=== PATIENT | female | born 1950 | race Caucasian/White ===

== ENCOUNTER 2018-05-19 10:17 | Emergency (ER) | payer MEDICARE, OTHER ==
--- NOTE | 2018-05-19 10:37 | ED ---
HPI Chest Pain - HPI Summary HPI Summary: Patient is a 67-year-old female who presents emergency department after an episode of chest pain and palpitations that occurred around 0300 today. She states she woke up from sleep and had substernal chest discomfort as well with a feeling of palpitations. No associated sxs of SOB, diaphoresis, lightedness/ dizziness. Episode passed quickly and pt. fell back asleep. Pt. 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 She states she wore a Holter monitor without significant findings. She believes she has had other tests on her heart such as stress test. Patient has a past medical history of hypertension and smoking. Takes baby asa daily. She denies strong family history for coronary artery disease. Patient does note that she did fly to the area from [place] on Sunday. Patient notes that she has had mild increased swelling in bilateral lower legs. Denies any significant shortness of breath. Symptoms are moderate in severity. Patient is currently chest pain-free. No current modifying factors. Pt. otherwise denies recent illness, cough, fever, abdominal pain, vomiting, diarrhea, urinary symptoms. - History of Current Complaint Chief Complaint: EDChestPainROMI Time Seen by Provider: 05/19/18 10:34 Hx Obtained From: Patient Pain Intensity: 0 - Allergy/Home Medications Allergies/Adverse Reactions: Allergies Allergy/AdvReac Type Severity Reaction Status Date / Time procaine [From Novocain] Allergy Numbness Verified 05/19/18 10:31 Home Medications: Home Medications Hydrochlorothiazide TAB* [Hydrodiuril TAB*] 25 mg PO DAILY 05/19/18 [History Confirmed 05/19/18] NIFEdipine ER TAB* [Procardia Xl TAB*] 30 mg PO DAILY 05/19/18 [History Confirmed 05/19/18] PMH/Surg Hx/FS Hx/Imm Hx Previously Healthy: Yes Infectious Disease History: No Infectious Disease History: Denies: Traveled Outside the [place] in Last 30 Days - Family History Known Family History: Negative: Cardiac Disease - Social History Occupation: Retired Lives: With Family Review of Systems Constitutional: Negative Negative: Fever, Chills Positive: Palpitations, Chest Pain Respiratory: Negative Gastrointestinal: Negative Negative: Abdominal Pain, Vomiting, Diarrhea, Nausea Genitourinary: Negative Neurological: Negative All Other Systems Reviewed And Are Negative: Yes Physical Exam Triage Information Reviewed: Yes Vital Signs On Initial Exam: Initial Vitals Temp Pulse Resp BP Pulse Ox 96.6 F 58 16 122/69 98 05/19/18 10:29 05/19/18 10:29 05/19/18 10:29 05/19/18 10:29 05/19/18 10:29 Vital Signs Reviewed: Yes Appearance: Positive: Well-Appearing - Pt. sitting on bed in no acute distress. Skin: Positive: Warm, Dry Head/Face: Positive: Normal Head/Face Inspection Eyes: Positive: Normal, EOMI Respiratory/Lung Sounds: Positive: Clear to Auscultation, Breath Sounds Present Cardiovascular: Positive: Normal, RRR Abdomen Description: Positive: Nontender, Soft Musculoskeletal: Positive: Normal, Strength/ROM Intact, Other - Mild bilateral lower leg edema. No calf tenderness or palpable cords. Diffuse ecchymosis to the fourth right toe with minimal pain. No pain to the foot or ankle. Diagnostics - Vital Signs Vital Signs Temp Pulse Resp BP Pulse Ox 05/19/18 10:29 96.6 F 58 16 122/69 98 - Laboratory Result Diagrams: 05/19/18 10:53 05/19/18 10:53 Lab Statement: Any lab studies that have been ordered have been reviewed, and results considered in the medical decision making process. Chest Pain Course/Dx - Course Course Of Treatment: Pt. presenting for an episode of CP and palpitations. She is currently chest pain free in ER. VS stable. CP workup ordered. Placed on monitor. ECG done at 1025 shows a sinus rhythm of 60bpm, normal axis, appropriate intervals, no ST elevation or depression. CXR negative per radiology. Labs are unremarkable, including negative trop and d dimer. Repeat troponin in 3 hours is still negative. HEART score is 3. Case discussed with Dr. Sparrow. Given risk factors and 2 negative troponin will dc home to f.u with PCP for further outpt. testing. Results and plan discussed with pt. and . Pt. return home in a few days and advised to call PCP and cottage supervisor to schedule close f.u apt. for further testing. To return to ER if sxs change or worsen. Pt. and understand and agree with plan. - Chest Pain Differential Diagnosis/HQI/PQRI: Acute KS, ACS, Angina, CHF, Chest Wall, GI Disease, Pulmonary Embolism - Diagnoses Provider Diagnoses: Chest pain Discharge - Sign-Out/Discharge Documenting (check all that apply): Patient Departure - Discharge Plan Condition: Good Disposition: HOME Patient Education Materials: Chest Pain (ED) Referrals: No Primary Care Phys,NOPCP [Primary Care Provider] - Additional Instructions: Call your PCP tomorrow to schedule a close follow up appointment for further evaluation of chest pain Return to ER immediately if chest pain returns or if concerned - Billing Disposition and Condition Condition: GOOD Disposition: Home
[2018-05-19 11:09] LABS: ABS Basophils 0.1 10^3/ul (0-0.2); ABS Eosinophils 0 10^3/ul (0-0.6); ABS Lymphocytes 1.6 10^3/ul (1.0-4.8); ABS Monocytes 0.9 10^3/ul (0-0.8); ABS Neutrophils 3.3 10^3/ul (1.5-7.7); ABS Nucleated RBC 0 10^3/ul; Eosinophil % 0.4 % (0-6); Hematocrit 42 % (35-47); Hemoglobin 14.4 g/dl (12.0-16.0); Lymphocyte % 27.4 % (25-47); Mean Corpuscular HGB Conc 35 g/dl (31-36); Mean Corpuscular Hemoglobin 33 pg (27-31); Mean Corpuscular Volume 95 fL (80-97); Mean Platelet Volume 8.7 um3 (7.4-10.4); Nucleated Red Blood Cells % 0.1; Platelet Count 207 10^3/ul (150-450); Red Blood Count 4.37 10^6/ul (4.00-5.40); Red Cell Distribution Width 13 % (10.5-15)
[2018-05-19 11:21] LABS: EGFR Non-African American 126.4 (>60)
--- NOTE | 2018-05-19 11:49 | RAD ---
INDICATION: Chest pain COMPARISON: None. TECHNIQUE: Single AP portable view of the chest was obtained. FINDINGS: Image quality is compromised due to the relative inferiority of a portable chest x-ray. The heart and mediastinum exhibit normal size and contour. The lungs are grossly clear. There is no evidence of a large pleural effusion. Visualized bones are normal for the patient's age. IMPRESSION: No radiographic evidence for acute cardiopulmonary abnormality on this portable chest x-ray.
[2018-05-19 14:20] VITALS: BP 126/84
== END 2018-05-19 14:23 | disposition home or self-care (01) ==
LOC: ED 10:17
DX: R07.9 Chest pain, unspecified (principal); R60.0 Localized edema; I10 Essential (primary) hypertension; F17.200 Nicotine dependence, unspecified, uncomplicated; Z79.82 Long term (current) use of aspirin; Z88.4 Allergy status to anesthetic agent
CPT/HCPCS: 36415; 71045; 80053; 84443; 84484; 85025; 85379; 85730; 93005; 99283